=== PATIENT | female | born 1985 | race Caucasian/White ===

== ENCOUNTER 2017-06-22 06:45 | Observation (INO) | payer BC ==
--- NOTE | 2017-06-22 07:13 | EDM.PDOC ---
ED HPI GENERAL MEDICAL PROBLEM - General Source of Information: Reports: Patient, EMS Notes Reviewed, Provider (called by MELI in [place]. ) History Limitations: Reports: No Limitations - History of Present Illness Onset: Today Onset Date: 06/22/17 Onset Time: 03:30 Duration: Hour(s): Location: Reports: Abdomen, Back (associated bleeding per vaginawhich awoke her from sleep this morning.) Quality: Reports: Ache, Pressure Severity: Moderate Improves with: Reports: None Worsens with: Reports: None Context: Reports: Other (awoke from sleep with feeling of something losing per vagina. When she reached down her hand was all bloody. 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 She presented to the hospital there around 0430 hrs. central time which would be 3: 30 hours are time. She awoke from sleep and felt gush between her legs. When she reached down she found that her hand was completely covered in blood. She sat on the toilet and passed a fair amount of bright red blood per vagina. No clots were appreciated. Nicole appreciated lower abdominal cramping pain that radiates suprapubically into both hips and into her lower back compatible with menstrual-like cramps Note the patient is 18 weeks by ultrasound. EDC has been set at November 24, 2017.she sees Dr. Chavez here in [place] for obstetrical care.patient has polycystic ovarian disease. She reports that they' ve been trying to get for 15 years and therefore she is 1 para 0. The rest of the is been rather uneventful of the poles of constipation mild intermittent nausea and heartburn. Only previous abdominal surgery was for exploratory laparoscopy to rule out endometriosis. She is felt to have a component of interstitial cystitis. She had pelvic floor muscle spasms as a cause of persistent pelvic pain which improved with aggressive physiotherapy program. She has no allergies and currently is on amoxicillin 5 mg 3 times a day for a urinary tract infection diagnosed yesterday. Symptoms of urinary urgency and frequency 3 days. History of chronic recurrent urinary tract infections. Denies fever chills nausea or vomiting. She is amy by history I strongly menstrual cramps about every 8-12 minutes and lasting 40 seconds. Doppler done in [facility] revealed normal heart tones in the 150s. They do not have the capability of a complete obstetrical ultrasound and thus she was sent to [place] for further assessment. By history concern is for possible abruption (Suhail Alfred) - Related Data Allergies Allergy/AdvReac Type Severity Reaction Status Date / Time morphine Allergy Muscle Verified 06/22/17 06:54 Aches Home Meds: Home Meds Amoxicillin 500 mg PO BID 06/22/17 [History] Cyanocobalamin (Vitamin B-12) [Vitamin B-12] 1,000 mcg PO DAILY 06/22/17 [ History] Multivitamin [Multivitamins] 1 each PO DAILY 06/22/17 [History] Past Medical History Genitourinary History: Reports: Other (See Below) Other Genitourinary History: PCOS.question of interstitial cystitis. 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 Denies: Fever, Chills, Decreased Appetite (during the ) HEENT: Reports: No Symptoms Respiratory: Reports: No Symptoms Cardiovascular: Reports: No Symptoms Endocrine: Reports: No Symptoms GI/Abdominal: Reports: Abdominal Pain (see history of present illness suprapubic pressure discomfort with intermittent lower abdominal cramping pain compatible with uterine contractions.) : Reports: Frequency, Urgency, Other ( but awoke from sleep around 0330 hrs. this morning.) Musculoskeletal: Reports: Back Pain Skin: Reports: No Symptoms (associated with bad cramps.) Neurological: Reports: No Symptoms Psychiatric: Reports: No Symptoms Hematologic/Lymphatic: Reports: No Symptoms Immunologic: Reports: No Symptoms <Suhail Alfred - Last Filed: 06/22/17 07:08> ED EXAM - Physical Exam Exam: See Below Exam Limited By: No Limitations General Appearance: Alert, WD/WN, Anxious, Mild Distress Eye Exam: Bilateral Eye: Normal Inspection Throat/Mouth: Normal Inspection, Normal Lips, Normal Teeth, Normal Oropharynx Head: Atraumatic, Normocephalic Neck: Normal Inspection, Supple, Non-Tender, Full Range of Motion. No: Lymphadenopathy (L), Lymphadenopathy (R) Respiratory/Chest: No Respiratory Distress, Lungs Clear, Normal Breath Sounds, No Accessory Muscle Use GI/Abdominal Exam: Soft, Non-Tender, No Abnormal Bruit, No Mass, Abnormal Bowel Sounds (somewhat hyperactive bowel sounds.), Other (uterine fundus is palpable 2 cm below the umbilicus compatible with an 18 week gestation. Uterus is known to be quite tender to palpation particularly laterally--near insertion of the round ligaments and anteriorly.). No: Guarding, Mass (Female) Exam: Other (pelvic exam was not repeated. MELI in [facility] relayed that the cervix appeared to be closed and there was some blood pooled in the posterior vaginal vault when he examined her by speculum. Patient doesn' t feel that there's been any other aggressive bleeding per vagina since that exam.) Heart Tones: Present (by Doppler.) Heart Tones per Min: 157 Movement: Active Back Exam: Normal Inspection, Full Range of Motion. No: CVA Tenderness (L), CVA Tenderness (R) Extremities: Normal Inspection, Normal Range of Motion, Non-Tender, No Pedal Edema, Normal Capillary Refill Neurological: Alert, Oriented, CN II-XII Intact, Normal Cognition, Normal Gait Psychiatric: Normal Affect, Anxious (as one would anticipate) Skin Exam: Warm, Dry, Intact, Normal Color, No Rash <Suhail Alfred - Last Filed: 06/22/17 07:08> Course <Suhail Alfred - Last Filed: 06/22/17 07:08> <Yuri Francis - Last Filed: 06/22/17 11:29> - Vital Signs Last Recorded V/S: Last Vital Signs Temp 98 F 06/22/17 06:50 Pulse 86 06/22/17 06:50 Resp 17 06/22/17 06:50 BP 129/75 06/22/17 06:50 Pulse Ox 100 06/22/17 06:50 - Orders/Labs/Meds Orders: Active Orders 24 hr Category Date Time Status Patient Status [ADT] Routine ADT 06/22/17 10:21 Active Notify Provider [RC] PRN Care 06/22/17 10:18 Active Vital Signs [RC] PER UNIT ROUTINE Care 06/22/17 10:18 Active Clear Liquid Diet [DIET] Diet 06/22/17 Lunch Active ABO/RH TYPE [BBK] Stat Lab 06/22/17 08:23 Results PATIENT RETYPE [BBK] Stat Lab 06/22/17 08:23 Results Sodium Chloride 0.9% [Normal Saline] 1,000 ml Med 06/22/17 07:30 Active IV ASDIRECTED Resuscitation Status Routine Resus Stat 06/22/17 10:18 Ordered Medication Orders Sodium Chloride (Normal Saline) 1,000 mls @ 125 mls/hr IV ASDIRECTED ANDREW Last Admin: 06/22/17 07:33 Dose: 125 mls/hr Labs: Laboratory Tests 06/22/17 06/22/17 06/22/17 Range/Units 07:35 08:23 08:23 WBC 12.94 H (3.98-10.04) K/mm3 RBC 4.11 (3.98-5.22) M/mm3 Hgb 11.7 (11.2-15.7) gm/L Hct 34.8 (34.1-44.9) % MCV 84.7 (79.4-94.8) fl MCH 28.5 (25.6-32.2) pg MCHC 33.6 (32.2-35.5) g/dl RDW Std Deviation 39.7 (36.4-46.3) fL Plt Count 269 (182-369) K/mm3 MPV 10.0 (9.4-12.3) fl Neutrophils % (Manual) 72 H (40-60) % Band Neutrophils % 0 (0-10) % Lymphocytes % (Manual) 28 (20-40) % Atypical Lymphs % 0 % Monocytes % (Manual) 0 L (2-10) % Eosinophils % (Manual) 0 L (0.7-5.8) % Basophils % (Manual) 0 L (0.1-1.2) Platelet Estimate Adequate Plt Morphology Comment Normal RBC Morph Comment Normal Sodium 142 (136-145) mEq/L Potassium 3.8 (3.5-5.1) mEq/L Chloride 108 H (98-107) mEq/L Carbon Dioxide 24 (21-32) mEq/L Anion Gap 13.8 (5-15) BUN 5 L (7-18) mg/dL Creatinine 0.5 L (0.55-1.02) mg/dL Est Cr Clr Drug Dosing 125.39 mL/min Estimated GFR (MDRD) > 60 (>60) mL/min BUN/Creatinine Ratio 10.0 L (14-18) Glucose 97 (74-106) mg/dL Calcium 8.3 L (8.5-10.1) mg/dL Total Bilirubin 0.2 (0.2-1.0) mg/dL AST 20 (15-37) U/L ALT 30 (14-59) U/L Alkaline Phosphatase 37 L (46-116) U/L Total Protein 6.5 (6.4-8.2) g/dl Albumin 2.7 L (3.4-5.0) g/dl Globulin 3.8 gm/dL Albumin/Globulin Ratio 0.7 L (1-2) Lipase 129 (73-393) U/L Urine Color Moira H (Yellow) Urine Appearance Cloudy H (Clear) Urine pH 8.0 (5.0-8.0) Ur Specific Huger 1.015 (1.005-1.030) Urine Protein Trace H (Negative) Urine Glucose (UA) Negative (Negative) Urine Ketones Negative (Negative) Urine Occult Blood 3+ H (Negative) Urine Nitrite Negative (Negative) Urine Bilirubin Negative (Negative) Urine Urobilinogen 0.2 (0.2-1.0) Ur Leukocyte Esterase 2+ H (Negative) Urine RBC >100 H (0-5) /hpf Urine WBC 20-30 H (0-5) /hpf Ur Epithelial Cells 10-20 H (0-5) /hpf Ur Transition Epith Cell 0-5 (0-5) Ur Renal Epithelial Cell 0-5 (0-5) /hpf Urine Bacteria Rare (FEW) /hpf Urine Mucus Not seen (FEW) /hpf Blood Type 06/22/17 Range/Units 08:23 WBC (3.98-10.04) K/mm3 RBC (3.98-5.22) M/mm3 Hgb (11.2-15.7) gm/L Hct (34.1-44.9) % MCV (79.4-94.8) fl MCH (25.6-32.2) pg MCHC (32.2-35.5) g/dl RDW Std Deviation (36.4-46.3) fL Plt Count (182-369) K/mm3 MPV (9.4-12.3) fl Neutrophils % (Manual) (40-60) % Band Neutrophils % (0-10) % Lymphocytes % (Manual) (20-40) % Atypical Lymphs % % Monocytes % (Manual) (2-10) % Eosinophils % (Manual) (0.7-5.8) % Basophils % (Manual) (0.1-1.2) Platelet Estimate Plt Morphology Comment RBC Morph Comment Sodium (136-145) mEq/L Potassium (3.5-5.1) mEq/L Chloride (98-107) mEq/L Carbon Dioxide (21-32) mEq/L Anion Gap (5-15) BUN (7-18) mg/dL Creatinine (0.55-1.02) mg/dL Est Cr Clr Drug Dosing mL/min Estimated GFR (MDRD) (>60) mL/min BUN/Creatinine Ratio (14-18) Glucose (74-106) mg/dL Calcium (8.5-10.1) mg/dL Total Bilirubin (0.2-1.0) mg/dL AST (15-37) U/L ALT (14-59) U/L Alkaline Phosphatase (46-116) U/L Total Protein (6.4-8.2) g/dl Albumin (3.4-5.0) g/dl Globulin gm/dL Albumin/Globulin Ratio (1-2) Lipase (73-393) U/L Urine Color (Yellow) Urine Appearance (Clear) Urine pH (5.0-8.0) Ur Specific Huger (1.005-1.030) Urine Protein (Negative) Urine Glucose (UA) (Negative) Urine Ketones (Negative) Urine Occult Blood (Negative) Urine Nitrite (Negative) Urine Bilirubin (Negative) Urine Urobilinogen (0.2-1.0) Ur Leukocyte Esterase (Negative) Urine RBC (0-5) /hpf Urine WBC (0-5) /hpf Ur Epithelial Cells (0-5) /hpf Ur Transition Epith Cell (0-5) Ur Renal Epithelial Cell (0-5) /hpf Urine Bacteria (FEW) /hpf Urine Mucus (FEW) /hpf Blood Type O NEGATIVE Meds: Medications Generic Name Dose Route Start Last Admin Trade Name Freq PRN Reason Stop Dose Admin Sodium Chloride 1,000 mls @ 125 mls/hr 06/22/17 07:30 06/22/17 07:33 Normal Saline IV 125 mls/hr ASDIRECTED ANDREW Administration - Radiology Interpretation Free Text/Narrative:: 32-year-old female arrives per ambulance from [facility]. She awoke from sleep this morning about 0330 hrs. with a warmth between her legs and when she reached down she identified that this was blood bright red blood. She sat on the toilet and then passed a fair quantity of bright red blood per vagina. No clots are present. Of note she is proximal be 18 weeks gestation with due date set at November 24, 2017. She is 1 para 0. She has severe polycystic ovarian disease and ovulates bearing infrequently. Only previous abdominal surgery has been laparoscopic investigation to rule out endometriosis. At present she is experiencing intermittent abdominal cramping pain like strong menstrual cramps compatible with uterine contractions. They are infrequent coming every 8-12 minutes but lasting 40 seconds when they do show up. She reports that her pain goes from 227 with the contractions. She doesn't appreciate any further aggressive bleeding per vagina since transport from [facility]. They identified viability with a heart rate reported at 157 range in [place] by Doppler but they did not have [place] ultrasound imaging.. Examination here shows very active bowel sounds throughout. The uterus is approximately 18 weeks gestation and is quite tender to palpation both anteriorly and laterally at the insertion of the round ligaments. Pelvic exam was not repeated since it was done in [facility] [place] was appreciated to be closed with some bright red blood in the posterior vaginal vault reported. Complicated by suspect urinary tract infection with leukocyte esterase positivity and strong urgency and frequency in the last 3-4 days. She was started on amoxicillin 500 mg 3 times a day yesterday. She took first tablet at 1700 hrs. yesterday and did take a second tablet around 4:00 this morning. She denies any fever chills nausea or vomiting. Plan routine labs to include a serum lipase. Blood type and screen. She thinks she is O+. is O negativeshe will have a transabdominal ultrasound performed to rule out abruption of placenta. (Suhail Alfred) - Re-Assessments/Exams Free Text/Narrative Re-Assessment/Exam: 06/22/17 07:24care transferred to Dr. Francis at change of shift. Patient did not want anything for pain at this time. (Suhail Alfred) 06/22/17 09:[address] Alfred. Her WBC was 12.94. Her creatinine was 0.5. Her lipase was negative. Her UA shows RBCs >100, WBCs 20-30, and epithelial cells. Dr Alfred had ordered a transabdominal US. The tech came out and asked if she could do a transvaginal US also. She is having trouble seeing the cervix. When she was done, she said her cervix was thining. I do not have a report back but the patient told the nurse she feels more pressure and movement in her vagina. I did a sterile pelvic exam and I could see the amniotic sac and movement. I tried to call Dr Chavez but she is out of town. I called Dr Myers the highway technician decorating consultant and he said he would be happy to come down but check with Dr Montes. Dr Montes will come see the patient. 06/22/17 10:46 The US shows severe funneling of the internal cervical os with small amount of blood clot seen within this area of funneling. foot extends into this area of funneling. Hypoechoic area beneath the portion of the placenta suspicious for partial placental abruption. Fetus is 17 weeks 5 days in age with heart rate of [address] Montes came to see the patient and took her to OB. She has an incomplete . (Yuri Francis) Departure <Suhail Alfred - Last Filed: 06/22/17 07:08> - Departure Time of Disposition: 11:30 <Yuri Francis - Last Filed: 06/22/17 11:29> - Departure Disposition: Admitted As Inpatient 64 Clinical Impression: Incomplete
[2017-06-22] MEDS ORDERED: Sodium Chloride 0.9% 1,000 ML IV SCH (07:30)
--- NOTE | 2017-06-22 10:32 | US ---
Limited obstetrical ultrasound: Multiple real-time images were obtained transabdominally. Transvaginal images were obtained of the cervix. Comparison: No previous study. Dates: LMP:? Current ultrasound: [facility] 11/25/17, gestational age 17 weeks 5 days presentation: Breech Placenta: Posterior with no findings of placenta previa Amniotic fluid: HERNANDO 14.4 cm Other findings: Hypoechoic area is identified along the edge of the placenta suspicious for partial placental abruption. Severe funneling of the internal cervical loss is seen with foot extending into the area of funneling. There is some material within the area of funneling presumably due to blood clot. Measurements: BPD: 3.81 cm - 17 weeks 5 days Head circumference: 14.63 cm - 17 weeks 6 days Abdominal circumference: 12.18 cm - 17 weeks 6 days Femur length: 2.45 cm - 17 weeks 3 days Estimated weight: 204 g (0 lbs. 7 oz.), estimated weight at the 40th percentile Heart rate: 162 BPM Impression: 1. Severe funneling of the internal cervical os with small amount of blood clot seen within this area of funneling. foot extends into this area of funneling. 2. Hypoechoic area beneath the portion of the placenta suspicious for partial placental abruption. 3. Fetus is 17 weeks 5 days in age with heart rate of 162 BPM Diagnostic code #5
--- NOTE | 2017-06-22 11:36 | PCM.HP ---
H&P History of Present Illness - General Date of Service: 06/22/17 Admit Problem/Dx: Admission Diagnosis/Problem Admission Diagnosis/Problem Inevitable complete miscarriage without complication Source of Information: Patient, Old Records History Limitations: Reports: No Limitations - History of Present Illness Initial Comments - Free Text/Narative: 32 year old at 17w6d here with inevitable . She had severe vomiting and diarrhea on 06.14.17. Denies fever at that time but was feeling poorly. Was not seen at that time. Then over past 4 days had pressure, hip pain , and dysuria. Actually sent an electronic message with a picture of a home UTI strip asking for antibiotics. My clinic nurse talked to her and advised that she be seen. She eventually presented to a walkin clinic and was evaluated and treated for UTI. Then over night called labor and delivery with cramping and was asked to come in. Waited and eventually had worsening cramping and called ambulance. At that time evaluate in ER in [place]. Transported rapidly here with spotting. Had ultrasound in ER with shortened cervix. Speculum exam by Dr. Francis showed feet and bulging bag of water in the vagina. Feeling significant pressure. Pelvic Pain Score (Numeric/FACES): 8 - Related Data Allergies/Adverse Reactions: Allergies Allergy/AdvReac Type Severity Reaction Status Date / Time morphine Allergy Muscle Verified 06/22/17 06:54 Aches Home Medications: Home Meds Amoxicillin 500 mg PO BID 06/22/17 [History] Cyanocobalamin (Vitamin B-12) [Vitamin B-12] 1,000 mcg PO DAILY 06/22/17 [ History] Multivitamin [Multivitamins] 1 each PO DAILY 06/22/17 [History] Past Medical History Genitourinary History: Reports: Other (See Below) Other Genitourinary History: PCOS.question of interstitial cystitis. 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 Ovaries, Social & Family History - Tobacco Use Smoking Status *Q: Never Smoker - Recreational Drug Use Recreational Drug Use: No - Living Situation & Occupation Living situation: Reports: Occupation: Employed H&P Review of Systems - Review of Systems: Review Of Systems: See Below General: Reports: Chills Pulmonary: Reports: No Symptoms Cardiovascular: Reports: No Symptoms Gastrointestinal: Reports: No Symptoms Genitourinary: Reports: Dysuria, Frequency, Burning, Urgency Musculoskeletal: Reports: No Symptoms Skin: Reports: No Symptoms Psychiatric: Reports: No Symptoms Neurological: Reports: No Symptoms Hematologic/Lymphatic: Reports: No Symptoms Immunologic: Reports: No Symptoms Exam - Exam Exam: See Below - Vital Signs Vital Signs: Last Vital Signs Temp 36.6 C 06/22/17 06:50 Pulse 86 06/22/17 06:50 Resp 17 06/22/17 06:50 BP 129/75 06/22/17 06:50 Pulse Ox 100 06/22/17 06:50 Weight: 90.718 kg - Exam General: Other (Tearful) HEENT: Conjunctiva Clear, Other Lungs: Clear to Auscultation, Normal Respiratory Effort Cardiovascular: Regular Rate GI/Abdominal Exam: Normal Bowel Sounds, Soft, Non-Tender, No Organomegaly (Female) Exam: Cervical Dilatation, Other (bulging bag of water with feet in vagina) Rectal (Female) Exam: Normal Exam Skin: Warm, Dry, Intact Neuro Extensive - Mental Status: Alert, Oriented x3, Normal Mood/Affect Neuro Extensive - Motor, Sensory, Reflexes: CN II-XII Intact Psychiatric: Alert, Normal Affect - Patient Data Result Diagrams: 06/22/17 08:23 06/22/17 08:23 *Q Meaningful Use (ADM) - VTE *Q VTE Criteria *Q: - Stroke *Q Stroke Criteria *Q: - AMI *Q AMI Criteria *Q: Problem List Initiated/Reviewed/Updated: Yes Orders Last 24hrs: Active Orders 24 hr Category Date Time Status Patient Status [ADT] Urgent ADT 06/22/17 11:08 Active Medication Orders Sodium Chloride (Normal Saline) 1,000 mls @ 125 mls/hr IV ASDIRECTED [facility] Last Admin: 06/22/17 07:33 Dose: 125 mls/hr Assessment/Plan Comment:: 1) Inevitable miscarriage in the second trimester. Discussed with patient that as she has had viral symptoms and nausea and vomiting combined with urinary tract infection suspect infectious origin. As she has been cramping and cervix is dilated with prolapsing membranes cannot offer cerclage or any heroic management. Would recommend misoprostol to facilitate delivery as I do have concerns for infection leading to sepsis as her WBC is already elevated. Also have concerns for increased risk of hemorrhage with delay. Discussed with patient and she agrees to misoprostol however [place] Director Moreno Lao involved in discussion and states this goes against ethical and confucianism directives as patient's life is not yet at risk and risk of sepsis is only theoretical. He needs to discuss with Dr. Ernie Whitfield. In meantime I will get opinion from [facility] and consider offer of transport to another facility if delivery does not occur.
[2017-06-22] MEDS ORDERED: Carboprost Tromethamine 250 MCG/1 ML Amp IM PRN (11:48)
[2017-06-22] MEDS ORDERED: Atropine/Diphenoxylate 0.025-2.5 MG Tab PO PRN (11:51)
--- NOTE | 2017-06-22 12:10 | PCM.PN ---
- General Info Date of Service: 06/22/17 - Review of Systems General: Reports: Chills HEENT: Reports: No Symptoms Pulmonary: Reports: No Symptoms Cardiovascular: Reports: No Symptoms Gastrointestinal: Reports: No Symptoms Genitourinary: Reports: No Symptoms Musculoskeletal: Reports: No Symptoms Skin: Reports: No Symptoms Neurological: Reports: No Symptoms Psychiatric: Reports: Other (tearful) - Patient Data Vitals - Most Recent: Last Vital Signs Temp 36.6 C 06/22/17 06:50 Pulse 86 06/22/17 06:50 Resp 17 06/22/17 06:50 BP 129/75 06/22/17 06:50 Pulse Ox 100 06/22/17 06:50 Weight - Most Recent: 90.718 kg Med Orders - Current: Current Medications Carboprost Tromethamine (Hemabate Ds) 250 mcg IM Q2H PRN PRN Reason: Abdominal Pain Diphenoxylate HCl/Atropine (Lomotil 0.025-2.5 Mg) 1 tab PO BID PRN PRN Reason: Diarrhea Sodium Chloride (Normal Saline) 1,000 mls @ 125 mls/hr IV ASD[facility]RECTED [facility] Last Admin: 06/22/17 07:33 Dose: 125 mls/hr - Exam General: Alert, Oriented (Female) Exam: Uterine Tenderness, Other (more) Psy/Mental Status: Alert, Normal Affect - Problem List Review Problem List Initiated/Reviewed/Updated: Yes - My Orders Last 24 Hours: My Active Orders 06/22/17 11:08 Patient Status [ADT] Urgent 06/22/17 11:48 Carboprost Tromethamine [Hemabate DS] 250 mcg IM Q2HR PRN 06/22/17 11:51 Atropine/Diphenoxylate [Lomotil 0.025-2.5 MG] 1 tab PO BID PRN - Assessment Assessment:: More pronounced uterine tenderness. - Plan Plan:: 1)Septic inevitable - would like to augment. Offered pt transport to [place]. She understands risks and at this point does not wish this. Will readdress if has not miscarried in 1-3 hours.
[2017-06-22] MEDS: Lactated Ringers 1,000 ML IV SCH ×2 (14:16→20:19)
--- NOTE | 2017-06-22 15:09 | PCM.SN ---
- Free Text/Narrative Note: Patient feeling increasingly poorly. More chills. Readdressed clinical situation with local transmission superintendent. He says as long as fetus has a heartbeat we cannot augment. I stressed she is at risk. He has taken this up the chain. Discussed patient with M who recommend transfer if no delivery by 1:30 to 2pm. Discussed this with patient. Her parents are on the way from [place] and she wants to wait on transfer until they arrive. She understands risks Discussed with the chair of primary care who agrees with my recommendation to augment
--- NOTE | 2017-06-22 15:11 | PCM.SN ---
- Free Text/Narrative Note: Patient requesting ethics committee discussion to avoid transport from here as she feels comfortable with us and care here and is alone. Discussed with Mr. Ayush Hearn who says that if mission feels this is not an options that an ethics committee of physicians will not alter that decision. Expressed that her life may be put at risk. He states they need to prioritize the previable baby until we can document there is no heartbeat.
[2017-06-22] MEDS: Misoprostol 200 MCG Tab SCH ×2 (15:14→19:54)
--- NOTE | 2017-06-22 15:14 | PCM.SN ---
- Free Text/Narrative Note: Patient's parents here. Patient very flushed. Temp 99.9. Feels "cruddy" Patient and mother asking if we can please use some medication to help "speed up labor" Again discussed my limitations based on hospital policy. Patient requesting to talk to "that ethics ranjit" in person. After patient conversation with Mr Lao he tells me he now feels (despite my feeling this much earlier) there is documentable infection and I can do whatever I see fit. Misoprostol ordered.
[2017-06-22] MEDS: Doxycycline 100 MG Cap PO SCH (15:48)
[2017-06-22] MEDS: cefOXitin 2 GM in Premix Bag 1 BAG IV SCH (16:52)
[2017-06-22] MEDS ORDERED: Nalbuphine 20 MG/1 ML Amp ONE (17:45)
--- NOTE | 2017-06-22 18:14 | PCM.SN ---
- Free Text/Narrative Note: After some maternal pushing in multiple positions after cytotec delivery of intact fetus. No bleeding. Hemabate given x 1 may repeat q 30 minutes. Total floor time for myself attending to labs, coordinating care, providing support, discussing with ethics/missions was 7 hours.
[2017-06-22] MEDS: Ondansetron 4 MG/2 ML SDV IVPUSH PRN ×2 (18:23→22:50)
[2017-06-22] MEDS ORDERED: Calcium Carbonate 500 MG Tab.Chew PO PRN (19:42)
[2017-06-22] MEDS ORDERED: Promethazine 12.5 MG in Sodium Chloride 0.9% 50 ML IV PRN (19:50)
[2017-06-22] MEDS: Famotidine 20 MG/2 ML SDV IVPUSH SCH ×2 (20:00→21:42)
[2017-06-22] MEDS ORDERED: Misoprostol 200 MCG Tab VAG ONE (20:41)
[2017-06-22] MEDS ORDERED: Misoprostol 200 MCG Tab PO SCH (20:45)
[2017-06-22] MEDS ORDERED: cefOXitin 2 GM in Premix Bag 1 BAG IV SCH (21:00)
[2017-06-22] MEDS ORDERED: Misoprostol 200 MCG Tab ONE (21:00)
[2017-06-23] MEDS ORDERED: Misoprostol 100 MCG Tab PO ONE (00:10)
--- NOTE | 2017-06-23 00:58 | PCM.SN ---
- Free Text/Narrative Note: Procedure: Patient was given 400 mcg of Cytotec empirically at 2100 hrs. She reported that she had some cramping but no significant abdominal pain or pelvic pressure. After approximately 2 hours she had decreased vaginal bleeding per the nurse's report. Met with patient at 0000 hours to discuss the plan included vaginal examination with possible speculum exam and if this was unsuccessful in removing the retained placenta that I would recommend going to the OR for D&C. Patient stated understanding and verbally consented to having the vaginal exam with speculum exam as well. Vaginal exam was performed and the placenta was felt past the cervical os but it was unable to be removed manually. Decision was made to perform a speculum exam at this time. The speculum was placed inside the vagina and the placenta was visualized and grasped with a ring forceps. The placenta was then gently removed without difficulty. The speculum was then reinserted there is noted to be several large dark red clots within the vagina that were also removed using the ring forceps. There is a small amount of additional placental tissue removed with one of the clots. There was no active bleeding. A bimanual exam was performed and the cervix was closed. Bedside ultrasound was performed that showed endometrial stripe thickness of 1.75 cm. Patient was given an additional 400 and mcg of Cytotec buccally. We will continue to monitor patient for signs of bleeding or infection. Will continue on antibiotics due to concern for possible septic . Patient tolerated the procedure well and did not require any additional medications for pain during the procedure. Mely Harry M.D. 12:57 AM 06/23/17
[2017-06-23] MEDS: Doxycycline 100 MG Cap PO SCH ×2 (03:33→15:04)
[2017-06-23] MEDS: cefOXitin 2 GM in Premix Bag 1 BAG IV SCH ×2 (04:54→16:34)
[2017-06-23] MEDS: Famotidine 20 MG/2 ML SDV IVPUSH SCH (09:02)
[2017-06-23] MEDS: Misoprostol 200 MCG Tab SCH ×3 (09:02→17:39)
--- NOTE | 2017-06-23 14:31 | PCM.DCSUM1 ---
Discharge Summary - Hospital Course Free Text/Narrative:: 32 year old at 17w6d here with inevitable . She had severe vomiting and diarrhea on 06.14.17. Denies fever at that time but was feeling poorly. Was not seen at that time. Then over past 4 days had pressure, hip pain , and dysuria. Actually sent an electronic message with a picture of a home UTI strip asking for antibiotics. My clinic nurse talked to her and advised that she be seen. She eventually presented to a walkin clinic and was evaluated and treated for UTI. Then over night called labor and delivery with cramping and was asked to come in. Waited and eventually had worsening cramping and called ambulance. At that time evaluate in ER in [place]. Transported rapidly here with spotting. Had ultrasound in ER with shortened cervix. Speculum exam by Dr. Francis showed feet and bulging bag of water in the vagina. Patient was started on doxycycline and Mefoxin for suspected septic . Patient was given Cytotec to induce delivery of the septic . At approximately 1700 hrs. she had spontaneous rupture membranes with foul- smelling fluid. She began pushing and at approximately 1650 she delivered a nonviable, male fetus in vertex position. She was given 1 dose of Hemabate IM to help with delivery of the placenta. After several hours she had not passed the placenta and she was given 400 mcg of Cytotec buccally. At approximately midnight a manual exam was performed and the placenta was felt to be within the cerclages but I'm able to be removed and a speculum exam was performed and the placenta was removed using ring forceps. There were several small clots that were removed using the ring forceps with a small amount of tissue. The placenta was sent for pathology. She was given an additional 400 mcg of Cytotec buccally. A bedside ultrasound was performed that showed the individual cavity measured approximately 1.75 cm. It was felt that a dilatation and curettage was not necessary at this time. In the morning she passed another larger clots and her bleeding slowed significantly. She is continued on the antibiotics until she was 24 hours after initiation and afebrile. She was discharged home on Keflex 500 mg 4 times daily for 7 days for suspected UTI on her intake urinalysis in the emergency department. In the morning of day #1 she was doing well and feeling much better without any nausea or vomiting. She was able tolerate a regular diet. She was ambulate without difficulty. She is voiding without difficulty. In the afternoon of day #1 she was discharged home and instructed to follow up with Dr. Montes in [place] on Sunday. She will also follow up with Dr. Montes in 1 month. HPI Initial Comments: 32 year old at 17w6d here with inevitable . She had severe vomiting and diarrhea on 06.14.17. Denies fever at that time but was feeling poorly. Was not seen at that time. Then over past 4 days had pressure, hip pain , and dysuria. Actually sent an electronic message with a picture of a home UTI strip asking for antibiotics. My clinic nurse talked to her and advised that she be seen. She eventually presented to a walkin clinic and was evaluated and treated for UTI. Then over night called labor and delivery with cramping and was asked to come in. Waited and eventually had worsening cramping and called ambulance. At that time evaluate in ER in [place]. Transported rapidly here with spotting. Had ultrasound in ER with shortened cervix. Speculum exam by Dr. Francis showed feet and bulging bag of water in the vagina. Patient was started on doxycycline and Mefoxin for suspected septic . Patient was given Cytotec to induce delivery of the septic . At approximately 1700 hrs. she had spontaneous rupture membranes with foul- smelling fluid. She began pushing and at approximately 1650 she delivered a nonviable, male fetus in vertex position. She was given 1 dose of Hemabate IM to help with delivery of the placenta. After several hours she had not passed the placenta and she was given 400 mcg of Cytotec buccally. At approximately midnight a manual exam was performed and the placenta was felt to be within the cerclages but I'm able to be removed and a speculum exam was performed and the placenta was removed using ring forceps. There were several small clots that were removed using the ring forceps with a small amount of tissue. The placenta was sent for pathology. She was given an additional 400 mcg of Cytotec buccally. A bedside ultrasound was performed that showed the individual cavity measured approximately 1.75 cm. It was felt that a dilatation and curettage was not necessary at this time. In the morning she passed another larger clots and her bleeding slowed significantly. She is continued on the antibiotics until she was 24 hours after initiation and afebrile. She was discharged home on Keflex 500 mg 4 times daily for 7 days for suspected UTI on her intake urinalysis in the emergency department. In the morning of day #1 she was doing well and feeling much better without any nausea or vomiting. She was able tolerate a regular diet. She was ambulate without difficulty. She is voiding without difficulty. In the afternoon of day #1 she was discharged home and instructed to follow up with Dr. Montes in [place] on Sunday. She will also follow up with Dr. Montes in 1 month. Brief History: 32 year old at 17w6d here with inevitable . She had severe vomiting and diarrhea on 06.14.17. Denies fever at that time but was feeling poorly. Was not seen at that time. Then over past 4 days had pressure, hip pain, and dysuria. Actually sent an electronic message with a picture of a home UTI strip asking for antibiotics. My clinic nurse talked to her and advised that she be seen. She eventually presented to a walkin clinic and was evaluated and treated for UTI. Then over night called labor and delivery with cramping and was asked to come in. Waited and eventually had worsening cramping and called ambulance. At that time evaluate in ER in [place]. Transported rapidly here with spotting. Had ultrasound in ER with shortened cervix. Speculum exam by Dr. Francis showed feet and bulging bag of water in the vagina. Patient was started on doxycycline and Mefoxin for suspected septic . Patient was given Cytotec to induce delivery of the septic . At approximately 1700 hrs. she had spontaneous rupture membranes with foul- smelling fluid. She began pushing and at approximately 1650 she delivered a nonviable, male fetus in vertex position. She was given 1 dose of Hemabate IM to help with delivery of the placenta. After several hours she had not passed the placenta and she was given 400 mcg of Cytotec buccally. At approximately midnight a manual exam was performed and the placenta was felt to be within the cerclages but I'm able to be removed and a speculum exam was performed and the placenta was removed using ring forceps. There were several small clots that were removed using the ring forceps with a small amount of tissue. The placenta was sent for pathology. She was given an additional 400 mcg of Cytotec buccally. A bedside ultrasound was performed that showed the individual cavity measured approximately 1.75 cm. It was felt that a dilatation and curettage was not necessary at this time. In the morning she passed another larger clots and her bleeding slowed significantly. She is continued on the antibiotics until she was 24 hours after initiation and afebrile. She was discharged home on Keflex 500 mg 4 times daily for 7 days for suspected UTI on her intake urinalysis in the emergency department. In the morning of day #1 she was doing well and feeling much better without any nausea or vomiting. She was able tolerate a regular diet. She was ambulate without difficulty. She is voiding without difficulty. In the afternoon of day #1 she was discharged home and instructed to follow up with Dr. Montes in [place] on Sunday. She will also follow up with Dr. Montes in 1 month. - Discharge Data Discharge Date: 06/23/17 Discharge Disposition: Home, Self-Care 01 Condition: Good - Discharge Diagnosis/Problem(s) (1) Second trimester SNOMED Code(s): 53634133 ICD Code: Z33.2 - ENCOUNTER FOR ELECTIVE TERMINATION OF Status: Acute (2) Chorioamnionitis, second trimester, fetus 1 SNOMED Code(s): 84255881 ICD Code: O41.1221 - CHORIOAMNIONITIS, SECOND TRIMESTER, FETUS 1 Status: Acute (3) Retained placenta or membranes without hemorrhage SNOMED Code(s): 304045556 ICD Code: O73.0 - RETAINED PLACENTA WITHOUT HEMORRHAGE Status: Acute (4) UTI (urinary tract infection) SNOMED Code(s): 93399302 ICD Code: N39.0 - URINARY TRACT INFECTION, SITE NOT SPECIFIED Status: Acute - Patient Summary/Data Operative Procedure(s) Performed: Manual extraction of the placenta during speculum exam with ring forceps Complications: Retained placenta Consults: [facility] Hospital Course: 32 year old at 17w6d here with inevitable . She had severe vomiting and diarrhea on 06.14.17. Denies fever at that time but was feeling poorly. Was not seen at that time. Then over past 4 days had pressure, hip pain , and dysuria. Actually sent an electronic message with a picture of a home UTI strip asking for antibiotics. My clinic nurse talked to her and advised that she be seen. She eventually presented to a walkin clinic and was evaluated and treated for UTI. Then over night called labor and delivery with cramping and was asked to come in. Waited and eventually had worsening cramping and called ambulance. At that time evaluate in ER in [place]. Transported rapidly here with spotting. Had ultrasound in ER with shortened cervix. Speculum exam by Dr. Francis showed feet and bulging bag of water in the vagina. Patient was started on doxycycline and Mefoxin for suspected septic . Patient was given Cytotec to induce delivery of the septic . At approximately 1700 hrs. she had spontaneous rupture membranes with foul- smelling fluid. She began pushing and at approximately 1650 she delivered a nonviable, male fetus in vertex position. She was given 1 dose of Hemabate IM to help with delivery of the placenta. After several hours she had not passed the placenta and she was given 400 mcg of Cytotec buccally. At approximately midnight a manual exam was performed and the placenta was felt to be within the cerclages but I'm able to be removed and a speculum exam was performed and the placenta was removed using ring forceps. There were several small clots that were removed using the ring forceps with a small amount of tissue. The placenta was sent for pathology. She was given an additional 400 mcg of Cytotec buccally. A bedside ultrasound was performed that showed the individual cavity measured approximately 1.75 cm. It was felt that a dilatation and curettage was not necessary at this time. In the morning she passed another larger clots and her bleeding slowed significantly. She is continued on the antibiotics until she was 24 hours after initiation and afebrile. She was discharged home on Keflex 500 mg 4 times daily for 7 days for suspected UTI on her intake urinalysis in the emergency department. In the morning of day #1 she was doing well and feeling much better without any nausea or vomiting. She was able tolerate a regular diet. She was ambulate without difficulty. She is voiding without difficulty. In the afternoon of day #1 she was discharged home and instructed to follow up with Dr. Montes in [place] on Sunday. She will also follow up with Dr. Montes in 1 month. - Patient Instructions Diet: Regular Diet as Tolerated Activity: As Tolerated Driving: Do Not Drive (For 48 hours) Showering/Bathing: May Shower Notify Provider of: Fever, Increased Pain, Swelling and Redness, Drainage, Nausea and/or Vomiting - Discharge Plan Prescriptions/Med Rec: Cephalexin [Keflex] 500 mg PO Q6HR 7 Days #28 cap Acetaminophen [Tylenol] 650 mg PO Q6H PRN #60 tablet PRN Reason: Pain Docusate Sodium [Colace] 100 mg PO BID PRN #60 capsule PRN Reason: Constipation Ibuprofen 600 mg PO Q6H PRN #60 tablet PRN Reason: Pain Home Medications: Home Meds Cyanocobalamin (Vitamin B-12) [Vitamin B-12] 1,000 mcg PO DAILY 06/22/17 [ History] Cyclobenzaprine [Flexeril] 10 mg PO PRN 06/22/17 [History] Multivitamin [Multivitamins] 1 each PO DAILY 06/22/17 [History] Ranitidine HCl [Zantac 75] 1 tab PO DAILY 06/22/17 [History] Acetaminophen [Tylenol] 650 mg PO Q6H PRN #60 tablet 06/23/17 [Rx] Cephalexin [Keflex] 500 mg PO Q6HR 7 Days #28 cap 06/23/17 [Rx] Docusate Sodium [Colace] 100 mg PO BID PRN #60 capsule 06/23/17 [Rx] Ibuprofen 600 mg PO Q6H PRN #60 tablet 06/23/17 [Rx] Patient Handouts: Vaginal Delivery, Loss, Care After Forms: ED Department Discharge Referrals: Sherri Chavez MD [Primary Care Provider] - Ama Montes MD [Physician] - (Follow-up with Dr. Montes next week and in one month or with Dr. Chavez in 6 weeks) - Discharge Summary/Plan Comment DC Time >30 min.: No - Patient Data Vitals - Most Recent: Last Vital Signs Temp 36.7 C 06/23/17 12:00 Pulse 80 06/23/17 12:00 Resp 16 06/23/17 12:00 BP 127/61 06/23/17 12:00 Pulse Ox 99 06/23/17 12:00 Weight - Most Recent: 90.718 kg I&O - Last 24 hours: Intake & Output 06/22/17 06/23/17 06/23/17 22:59 06:59 14:59 Intake Total 1 Balance 1 Lab Results - Last 24 hrs: Laboratory Results - last 24 hr 06/22/17 06/23/17 Range/Units 15:25 05:45 WBC 13.89 H (3.98-10.04) K/mm3 RBC 3.99 (3.98-5.22) M/mm3 Hgb 11.4 (11.2-15.7) gm/L Hct 33.8 L (34.1-44.9) % MCV 84.7 (79.4-94.8) fl MCH 28.6 (25.6-32.2) pg MCHC 33.7 (32.2-35.5) g/dl RDW Std Deviation 39.4 (36.4-46.3) fL Plt Count 260 (182-369) K/mm3 MPV 9.6 (9.4-12.3) fl Neutrophils % (Manual) 82 H (40-60) % Band Neutrophils % 0 (0-10) % Lymphocytes % (Manual) 13 L (20-40) % Atypical Lymphs % 0 % Monocytes % (Manual) 3 (2-10) % Eosinophils % (Manual) 1 (0.7-5.8) % Basophils % (Manual) 1 (0.1-1.2) Platelet Estimate Adequate RBC Morph Comment Normal Blood Type O NEGATIVE Gel Antibody Screen Negative Screen 1 ros/5 flds - neg RhIG Candidate? Yes Rhogam Indicated Yes, baby rh unknown H Med Orders - Current: Current Medications Calcium Carbonate/Glycine (Tums) 1,000 mg PO Q2HR PRN PRN Reason: Indigestion Last Admin: 06/22/17 22:45 Dose: 1,000 mg Carboprost Tromethamine (Hemabate Ds) 250 mcg IM Q2H PRN PRN Reason: Abdominal Pain Last Admin: 06/22/17 17:51 Dose: 250 mcg Diphenoxylate HCl/Atropine (Lomotil 0.025-2.5 Mg) 1 tab PO BID PRN PRN Reason: Diarrhea Doxycycline Hyclate (Vibramycin) 100 mg PO Q12H [facility] Last Admin: 06/23/17 03:33 Dose: 100 mg Famotidine (Pepcid) 20 mg IVPUSH BID [facility] Last Admin: 06/23/17 09:02 Dose: Not Given Sodium Chloride (Normal Saline) 1,000 mls @ 125 mls/hr IV ASDIRECTED [facility] Last Admin: 06/22/17 07:33 Dose: 125 mls/hr Lactated Ringer's (Ringers, Lactated) 1,000 mls @ 125 mls/hr IV ASDIRECTED [facility] Last Admin: 06/22/17 20:19 Dose: 125 mls/hr Cefoxitin Sodium 2 gm/ Premix 50 mls @ 100 mls/hr IV Q12H [facility] Last Admin: 06/23/17 04:54 Dose: 100 mls/hr Promethazine HCl 12.5 mg/ (Sodium Chloride) 50.5 mls @ 100 mls/hr IV Q6H PRN PRN Reason: Vomiting Last Admin: 06/22/17 20:13 Dose: 100 mls/hr Misoprostol (Cytotec) 200 mcg .XX Q4H [facility] Last Admin: 06/23/17 09:02 Dose: Not Given Misoprostol (Cytotec) 400 mcg PO .ONCE ANDREW Last Admin: 06/22/17 21:12 Dose: 400 mcg Ondansetron HCl (Zofran) 4 mg IVPUSH Q4H PRN PRN Reason: Nausea Last Admin: 06/22/17 22:50 Dose: 4 mg Discontinued Medications Cefoxitin Sodium 2 gm/ Premix 50 mls @ 100 mls/hr IV Q12HR [facility] Misoprostol (Cytotec) 400 mcg VAG ONETIME ONE Stop: 06/22/17 20:42 Misoprostol (Cytotec) 400 mcg .XX ONETIME ONE Stop: 06/22/17 21:01 Misoprostol (Cytotec) 400 mcg PO ONETIME ONE Stop: 06/23/17 00:11 Last Admin: 06/23/17 00:17 Dose: 400 mcg Nalbuphine HCl (Nubain) Confirm Administered Dose 20 mg .ROUTE .STK-MED ONE Stop: 06/22/17 17:46 *Q Meaningful Use (DIS) - VTE *Q VTE Criteria *Q: - Stroke *Q Stroke Criteria *Q: - AMI *Q AMI Criteria *Q:
[2017-06-23 17:35] VITALS: BP 120/69
== END 2017-06-23 17:17 | disposition home or self-care (01) ==
LOC: JD.ED 06:45 → JD.OB 10:21
PROVIDERS: ADMIT Obstetrics & Gynecology; ATTEND Obstetrics & Gynecology
DX: O03.88 Urinary tract infection following complete or unspecified spontaneous abortion (principal); O41.1221 Chorioamnionitis, second trimester, fetus 1; O73.0 Retained placenta without hemorrhage; E28.2 Polycystic ovarian syndrome; Z3A.17 17 weeks gestation of pregnancy; Z87.891 Personal history of nicotine dependence; Z88.5 Allergy status to narcotic agent; Z79.899 Other long term (current) drug therapy; Z90.89 Acquired absence of other organs; Z98.890 Other specified postprocedural states
CPT/HCPCS: 36415; 59409; 76815; 80053; 81001; 83690; 85025; 85461; 86850; 86900; 86901; 96361; 96365; 96366; 96372; 96375; 96376; 99285; A9270; G0378; J0694; J2405; J2550; J2790; J7040; J7050; J7120; 96360